=== PATIENT | female | born 1990 | race Caucasian/White ===

== ENCOUNTER 2019-12-31 08:36 | Outpatient (CLI) | payer OTHER, SELFPAY ==
--- NOTE | ~2019-12-31 | US_ITS ---
EXAMINATION: 1. US OB /maternal detail 2. US OB transvaginal DATE: 12/31/2019 10:29 INDICATION: Encounter for supervision of normal first , second trimester. TECHNIQUE: Real-time transabdominal and transvaginal ultrasound of the pelvis was performed. COMPARISON: None. FINDINGS: There is a single living fetus in variable presentation. The placenta is posterior, 1.2 cm from the cervix. heart rate is 155 beats per minute (bpm). The amniotic fluid index is 12.7 cm, which is normal. The following biometric data were obtained: Biparietal diameter (BPD): 5.2 cm; head circumference (HC): 18.3 cm; abdominal circumference (AC): 17 .0 cm; femur length (FL): 3.9 cm. These measurements are concordant. Estimated weight is 467 g +/- 70 g, which correlates with 18th percentile when 05/01/20 is used as estimated date of delivery. As single measurements, these parameters are each equal to the following estimated gestational ages: BPD: 21 weeks 6 days. HC: 20 weeks 5 days. AC: 22 weeks 0 days. FL: 22 weeks 3 days. estimated gestational age based solely on measurements from this exam is 21 weeks 5 days +/- 1 weeks 4 days. The cerebral ventricles, cerebellum, cisterna magna, nuchal fold, lip, and visualized portions of the spine are normal. The heart is normal. The diaphragm, stomach, kidneys, and bladder are normal. Ther e are two umbilical arteries to yield a 3-vessel cord. The cord insertion is normal. Transvaginal images demonstrate a cervical length of 3.4 cm, which is normal. IMPRESSION: 1. Single living fetus in variable presentation. 2. Estimated weight is 467 g +/- 70 g, which correlates with 18th percentile when 05/01/20 is u sed as estimated date of delivery. 3. Normal anatomic survey. 4. Low lying placenta. 5. Normal cervical length. Reviewed, dictated and finalized at location A. ITAL MONITOR IMPRESSION: 1. Single living fetus in variable presentation. 2. Estimated weight is 467 g +/- 70 g, which correlates with 18th percen tile when 05/01/20 is used as estimated date of delivery. 3. Normal anatomic survey. 4. Low lying placenta. 5. Normal cervical length.
[2020-01-04 08:30] LABS: CMV IgG Antibody <0.60 U/mL (<0.60)
== END 2019-12-31 08:37 | disposition home or self-care (01) ==
PROVIDERS: Visit Provider Obstetrics & Gynecology
DX: O44.42 Low lying placenta NOS or without hemorrhage, second trimester (principal); Z3A.21 21 weeks gestation of pregnancy
CPT/HCPCS: 36415; 76805; 76817; 86644; 86747; 86787

== ENCOUNTER 2020-02-07 10:15 | Outpatient (CLI) | payer OTHER, SELFPAY ==
[2020-02-07 11:50] LABS: Hematocrit 34.4 % (37.0-47.0); Hemoglobin 11.8 g/dL (12.0-15.0)
[2020-02-07 12:02] LABS: Glucose 1 Hour PP 50gm Dose 125 mg/dL
[2020-02-07 12:41] LABS: HIV 1/2 Ab P24 Ag Result Negative (Negative)
== END 2020-02-07 10:16 | disposition home or self-care (01) ==
PROVIDERS: Visit Provider Obstetrics & Gynecology
DX: Z34.02 Encounter for supervision of normal first pregnancy, second trimester (principal); Z3A.00 Weeks of gestation of pregnancy not specified
CPT/HCPCS: 36415; 82947; 85014; 85018; 86703; G0432

== ENCOUNTER 2020-04-16 15:54 | Outpatient (CLI) | payer OTHER, SELFPAY ==
[2020-04-16 16:32] LABS: Basophils Percent Auto 0.2 % (0.2-1.2); Eosinophils Absolute Auto 0.1 K/mm3 (0-0.3); Hematocrit 38.5 % (37.0-47.0); Hemoglobin 13.4 g/dL (12.0-15.0); Immature Granulocyte Absolute 0.08 K/mm3 (0.00-0.031); Immature Granulocyte Percent A 0.9 % (0-0.5); Lymphocytes Absolute Auto 1.53 K/mm3 (0.9-3.2); Lymphocytes Percent Auto 17.3 % (18.3-44.2); Mean Corpuscular HGB Conc 34.8 g/dl (32-36); Mean Corpuscular Hemoglobin 30.7 pg (26-34); Mean Corpuscular Volume 88.1 fl (80-100); Mean Platelet Volume 9.9 fl (7.4-10.4); Monocytes Absolute Auto 0.4 K/mm3 (0.1-0.6); Monocytes Percent Auto 4.5 % (2.6-8.5); Neutrophils Absolute Auto 6.7 K/mm3 (1.3-6.7); Neutrophils Percent Auto 76.1 % (45.5-73.1); Platelet Count Result 228 k/mm3 (150-375); Red Blood Count 4.37 M/mm3 (4.2-5.4); Red Cell Distribution Width 12.8 % (11.5-14.5); White Blood Count 8.8 K/mm3 (4.5-10.0)
[2020-04-17 08:54] LABS: Rapid Plasma Reagin Non-Reactive (NonReactive)
== END 2020-04-16 15:55 | disposition home or self-care (01) ==
PROVIDERS: Visit Provider Obstetrics & Gynecology
DX: Z01.818 Encounter for other preprocedural examination (principal)
CPT/HCPCS: 36415; 85025; 86592; 86850; 86900; 86901

== ENCOUNTER 2020-04-17 09:44 | Inpatient (IN) | payer OTHER, SELFPAY ==
[2020-04-17] VITALS (50 sets, daily range): BP systolic 84–120; BP diastolic 53–88; PULSE 76–118; RESP 13–20; TEMP 36.2–36.7; O2SAT 96–100; BMI 33.8
[2020-04-17] MEDS: LACTATED RINGERS 1,000 ML 999 ML (10:50)
--- NOTE | 2020-04-17 11:13 | WPDANESEPPF ---
Anes - Initial Pre Proc Eval Date/Time: 04/17/20 11:13 Surgeon: Rashmi Hurtado MD Pre Op Diagnosis: Patient Data Age: 29 Gender: F Height: Weight: Last Vital Signs Pulse 105 H 04/17/20 10:11 BP 116/62 04/17/20 10:11 Allergies Allergy/AdvReac Type Severity Reaction Status Date / Time sulfamethoxazole Allergy Verified 01/31/20 14:46 trimethoprim Allergy Verified 01/31/20 14:46 Home Medications Medication Instructions Recorded Confirmed Type PNV cmb#95-ferrous fumarate-FA 1 tablet PO DAILY 03/31/20 03/31/20 History [] docusate sodium [Colace] 100 mg PO BID 03/31/20 03/31/20 History ferrous sulfate [Iron (ferrous 325 mg PO DAILY 03/31/20 03/31/20 History sulfate)] Patient hx anesthesia problems: none Family hx anesthesia problems: none PMFSH Family History Family History Father High cholesterol Hypertension Sibling Asthma Mother Hypothyroidism Social History Social History Substance use: never Gender identity (if verbalized by the patient): Female Spiritual care concerns: No Anes - Eval Final PreProcedure Day of Procedure 04/17/20 11:13 Patient weight: overweight Heart: regular rate and rhythm Lungs: clear to auscultation Airway: Mallampati scale class II Neurological: alert and oriented Last oral intake: >/= 8 hours ASA classification: II Emergent: no Anesthetic plan: proceed Anesthesia type and monitoring: regional spinal and standard monitoring Informed Consent: The patient's anesthetic plan and its attendant risks and benefits were discussed with the patient/family/POA. Questions were solicited and answers provided to the satisfaction of the patient/family/POA.
--- NOTE | 2020-04-17 11:23 | LDADM ---
This patient, Jessica Knight, was admitted to Labor/Delivery/Recovery 120 on 04/17/20 at 09:44. Plans for labor, pain management and were discussed with patient. Patient/ oriented to hospital policies and general routines including ID bracelet, bed and alarms, visiting hours, pain management, procedures, bathroom and other care routines, personal items, smoking policy, room service/diet and guest tray routines, infant security routines, call light, and visiting hours. Patient/ are encouraged to report perceived risks to care and to ask questions if they do not understand what they are told or what they should do. See OBIX for further documentation.
--- NOTE | 2020-04-17 12:06 | P.HP_ITS ---
H&P: HPI History of Present Illness Chief complaint: Narrative: Jessica Knight is a 29 yo @ 38.0 who presents for scheduled primary c/s due to low lying placenta. She denies any issues. Good movement. No vaginal bleeding, contractions, or leakage of fluid. Her has been complicated by: 1. Persistent low lying placenta; without bleeding 2. H/o LEEP w/ normal cervical lengths 3. H/o depression, not on medications Review of Systems Constitutional: Constitutional: Denies body ache(s) and Denies chills Eyes: Eyes: Denies blurry vision Cardiovascular: Cardiovascular: Denies chest pain and Denies palpitations Respiratory: Respiratory: Denies cough and Denies dyspnea Gastrointestinal: Gastrointestinal: Denies nausea and Denies vomiting Genitourinary: Genitourinary: Denies vaginal discharge Neurologic: Denies vertigo and Denies headache(s) Psychiatric: Psychiatric: Denies anxiety [facility] Family History Family History Father High cholesterol Hypertension Sibling Asthma Mother Hypothyroidism Social History Social History Smoking status: Never smoker Substance use: never Gender identity (if verbalized by the patient): Female Spiritual care concerns: No Meds Home Medications and Allergies Home Medications Medication Instructions Recorded Confirmed Type PNV cmb#95-ferrous fumarate-FA 1 tablet PO DAILY 03/31/20 03/31/20 History [] docusate sodium [Colace] 100 mg PO BID 03/31/20 03/31/20 History ferrous sulfate [Iron (ferrous 325 mg PO DAILY 03/31/20 03/31/20 History sulfate)] Allergies Allergy/AdvReac Type Severity Reaction Status Date / Time sulfamethoxazole Allergy Verified 01/31/20 14:46 trimethoprim Allergy Verified 01/31/20 14:46 Exam Const: General: comfortable and no acute distress Resp: Effort & Inspection: normal respiratory effort Cardio: Rate: regular rate GI: GI Palp: Yes Soft to palpation and No Tenderness to palpation present (GI) : Other: FHT: 150's/ mod kori/ + accels/ no decels - cat 1 TOCO: irritability no vaginal bleeding Skin: General skin exam: no rashes or lesions noted Neuro: Speech: normal speech Extrem: General: normal to inspection Psych: Mental Status: mental status grossly normal Affect: normal affect Assessment and Plan Assessment and plan (1) Low lying placenta nos or without hemorrhage, third trimester: Code(s): O44.43 - Low lying placenta NOS or without hemorrhage, third trimester Status: Acute Additional Plan - Persistent low lying placenta confirmed on US @ 35.6wks (1.9cm from os) - Discussed risks and benefits of attempting vaginal delivery vs primary low transverse c/s in detail with patient, and timing of between 37-39wks due to no h/o bleeding. - Pt desires to proceed with scheduled pLTCS @ 38.0wks to decrease the risk of contractions/risk of vaginal bleeding and emergency c/s
[2020-04-17] MEDS: ceFAZolin 2 GM/D5W 50 ML 2 GM/50 ML BAG IVPB (12:07)
[2020-04-17] MEDS: LORATADINE 10 MG TABLET PO (15:01)
[2020-04-17] MEDS: OXYTOCIN 30 UNITS/NS 500 ML 30 UNITS/500 ML BAG 125 UNITS IV CONT (15:01)
--- NOTE | 2020-04-17 16:04 | OBPPTRN ---
Patient transferred to post room # 284 via stretcher. Support person present. Oriented to unit, room, information board, rooming in, admission packet and security measures. Patient verbalizes understanding.
--- NOTE | 2020-04-17 17:13 | PM.OBPRVD ---
OB - Delivery Note Procedure Delivery date: 04/17/20 Procedure: Procedures Operation Date: 04/17/20 12:00 Actual Procedures Side Surgeon p Section Rashmi Hurtado MD Description of the Procedure: Jessica is a 29yo @ 38.0wks who presented for scheduled primary section due to low lying placenta, 1.9cm from os. She was counseled on all risks and benefits in detail. She was taken to the operating room where spinal epidural was placed. She was then prepped and draped in the normal sterile fashion. She received 2g Ancef and a time out was performed. A Pfannenstiel incision was made in the skin and carried down to the underlying fascia. The fascia was nicked on either side of the midline and the fascial incision was extended laterally and superiorly. The fascia was then elevated and the underlying rectus muscles were dissected off the fascia, superiorly and inferiorly. The rectus muscles were then in the midline and the peritoneum was entered bluntly. Once adequate exposure was obtained, an Norma self retractor was placed within the abdomen. A bladder flap was created. A low transverse incision was made on the lower uterine segment and clear fluid was noted. The occicuput was brought to the hysterotomy and the head was easily delivered. The shoulder and body then followed without complications. The fetus had spontaneous cry and the mouth and nose were bulb suctioned. The cord was clamped and cut and the fetus was handed off to the awaiting pediatric nurse. A segment of the cord was collected for cord gases. The remaining cord blood was collected for typing. With pitocin infusing, the placenta delivered with gentle traction on the cord without complications. The uterus was then cleared out of all clots and debris using a clean, moist lap. The hysterotomy was then repaired in a running, interlocking fashion using 0 Vicryl. A second layer imbricating suture was then made using 0 Vicryl. The hysterotomy was found to be hemostatic and good uterine tone was noted. The bilateral adnexa were examined and found to be normal. The pelvis was cleared of all clots and fluid. The norma retractor was removed from the abdomen. The peritoneum, muscle, and fascia were examined and made hemostatic with bovie cautery. The fascia was then repaired using two separate 0 Vicryl sutures in a running fashion. The subcutaneous tissue was then irrigated and made hemostatic with bovie cautery. The subcutaneous tissue was then reapproximated using 0 Vicryl. The skin was then closed using 3-0 Monocryl in a running subcuticular fashion. Sponge, lap, needle and instrument counts were correct at the end of the procedure x2. The patient tolerated the procedure well and was taken to recovery in a stable condition. Route of delivery: (scheduled due to low lying placenta) Estimated blood loss (mL): 465 Anesthesia type: Spinal Disposition: PACU Baby Date of : 04/17/20 Time of : 12:50 Weeks of gestation at delivery: 38 gender: Female Weight (pounds): 8 Weight (ounces): 2 presentation: vertex Placenta delivery description: Manual Removal cord vessel description: 3 Vessels score one minute: 9 score five minutes: 9
[2020-04-17] MEDS: KETOROLAC 30 MG/ML VIAL (*BKC) IV PUSH (18:41)
[2020-04-18] MEDS: KETOROLAC 30 MG/ML VIAL (*BKC) IV PUSH ×2 (00:58→07:26)
[2020-04-18 01:10] VITALS: BP 101/56; PULSE 83; RESP 12; TEMP 36.2; O2SAT 99
[2020-04-18 04:30] VITALS: BP 100/57; PULSE 91; RESP 14; TEMP 36.6; O2SAT 99
[2020-04-18 05:33] LABS: Basophils Percent Auto 0.2 % (0.2-1.2); Eosinophils Absolute Auto 0.1 K/mm3 (0-0.3); Eosinophils Percent Auto 0.9 % (0-4.4); Hematocrit 31.8 % (37.0-47.0); Hemoglobin 10.9 g/dL (12.0-15.0); Immature Granulocyte Absolute 0.07 K/mm3 (0.00-0.031); Immature Granulocyte Percent A 0.7 % (0-0.5); Lymphocytes Absolute Auto 1.33 K/mm3 (0.9-3.2); Lymphocytes Percent Auto 12.6 % (18.3-44.2); Mean Corpuscular HGB Conc 34.3 g/dl (32-36); Mean Corpuscular Hemoglobin 30.5 pg (26-34); Mean Corpuscular Volume 89.1 fl (80-100); Mean Platelet Volume 10.1 fl (7.4-10.4); Monocytes Absolute Auto 0.5 K/mm3 (0.1-0.6); Neutrophils Absolute Auto 8.5 K/mm3 (1.3-6.7); Neutrophils Percent Auto 80.6 % (45.5-73.1); Platelet Count Result 167 k/mm3 (150-375); Red Blood Count 3.57 M/mm3 (4.2-5.4); Red Cell Distribution Width 12.9 % (11.5-14.5); White Blood Count 10.6 K/mm3 (4.5-10.0)
[2020-04-18] MEDS: DOCUSATE SODIUM 100 MG CAPSULE PO ×2 (07:24→17:00)
[2020-04-18] MEDS: MULTIVIT/MIN/PREN/FOL AC/IRON TABLET 1 TAB PO (07:24)
[2020-04-18 08:05] VITALS: BP 98/56; PULSE 89; RESP 16; TEMP 36.8; O2SAT 97
--- NOTE | 2020-04-18 08:24 | PC.NURSE ---
On 04/18/20, all charting on this pt. from 619 to 1829 under the name Yadi Richter RN was actually performed and completed by Bubba Shah RN
--- NOTE | 2020-04-18 09:10 | WPDANLDPN2 ---
Anes-Prog Note L&D Date/Time: 04/18/20 09:10 Comfortable throughout: section Neuraxial method: spinal Epidural/Spinal procedure site: clean & non-tender Neuro status: Neuro function grossly intact. Cardiovascular status: normal Respiratory status: normal Airway patency: baseline Mental status: baseline Post-Op hydration status: normal Vital Signs: Last Vital Signs Temp 36.6 C 04/18/20 04:30 Pulse 91 04/18/20 04:30 Resp 14 04/18/20 04:30 BP 100/57 L 04/18/20 04:30 Pulse Ox 99 04/18/20 04:30 I/O: Intake & Output 04/17/20 04/18/20 04/18/20 23:59 07:59 15:59 Intake Total 400 1800 Output Total 443 8351 Balance -43 -275 Post-procedural complaints: none Patient feedback: Patient satisfied with anesthetic care.
--- NOTE | 2020-04-18 11:25 | PC.NURSE ---
Mother called out for assist with feeding. Consulted with patient, reviewed feeding cues, frequencies, duration of feedings, feeding elimination flow sheet, and signs of adequate intake. Demonstrated stimulation techniques to wake for feeding. Noted mother has a slight bruising to center of left nipple, from possible shallow latch. Assisted with to breast. Reviewed positioning/alignment in cross cradle, holding breast in U hold and guided asymmetrical latch on. Discussed rational for each. Infant was able to latch correctly within a few attempts. Infant nursed eagerly, with steady draws and frequent swallowing noted. Reviewed signs of a correct latch, effective nursing and suck swallow ratio. was able to maintain latch without discomfort to mother. Nipple care reviewed. Demonstrated how to adjust latch more deeply while feeding. Discussing left nipple bruising, infant may have slipped down to shallow latch. Advised to stimulate to keep infant awake and nursing effectively and to assist with maintaining deep latch. Instructed mother to call out for RN assistance if she is unable to latch infant for feeding or she has discomfort with nursing. Instructed feeding should be initiated three hours from start of last feeding or if feeding cues are noted before. Mother voiced understanding of information shared.
[2020-04-18 13:00] VITALS: BP 126/85; PULSE 102; RESP 18; TEMP 37; O2SAT 100
[2020-04-18] MEDS: IBUPROFEN 600 MG TABLET PO ×2 (13:07→19:52)
--- NOTE | 2020-04-18 14:03 | P.PNOB_ITS ---
OB - PN: Subj Subjective Date/time seen: 04/18/20 14:03 Jessica is a 29yo P1001 s/p pLTCS 2/2 low lying placenta @38.0wks, POD #1 Today, Jessica reports doing well. Her pain is more than expected but controlled with the pain medications. She is tolerating regular diet w/o N/V. She is spontaneously voiding and has already had a BM. She reports her bleeding is normal. She has ambulated w/o s/sx of anemia. She is breast feeding. OB - PN: Obj Data Labs CBC & Chem 7: 04/18/20 05:03 Labs: Laboratory Results - last 24 hr 04/18/20 05:03 WBC 10.6 H RBC 3.57 L Hgb 10.9 L Hct 31.8 L MCV 89.1 MCH 30.5 MCHC 34.3 RDW 12.9 Plt Count 167 MPV 10.1 Immature Gran % (Auto) 0.7 H Neut % (Auto) 80.6 H Lymph % (Auto) 12.6 L [place] % (Auto) 5.0 Eos % (Auto) 0.9 Baso % (Auto) 0.2 Lymph # (Auto) 1.33 [place] # (Auto) 0.5 Eos # (Auto) 0.1 Baso # (Auto) 0.0 Abs Immat Gran (auto) 0.07 H Absolute Neuts (auto) 8.5 H Absolute Nucleated RBC 0.0 Nucleated RBC % 0.0 OB - PN A/P Assessment and Plan (1) S/P section: Code(s): Z98.891 - History of uterine scar from previous surgery Status: Acute Plan day: 1 Comments: - Meeting all post-op milestones - Pain meds PRN - Regular diet, normal bowel function - Continue breast feeding - Labs/vitals stable - Anticipate D/C home on POD# 2 or 3 Time Spent With Patient Time: Total time spent is greater than 50% in coordination of care (as documented) at patient's floor/unit and/or counseling patient: Review of Systems Constitutional: Constitutional: Denies chills Cardiovascular: Cardiovascular: Denies rapid heart rate Respiratory: Respiratory: Denies cough and Denies dyspnea Gastrointestinal: Gastrointestinal: Reports abdominal pain, Denies nausea and Denies vomiting Genitourinary: Comments: normal bleeding Neurologic: Denies headache(s) Exam Const: General: comfortable, no acute distress, alert and awake Orientation/consciousness: patient oriented x3 Resp: Effort & Inspection: normal respiratory effort Auscultation: clear to auscultation bilaterally Cardio: Rate: regular rate GI: Auscultation: normal bowel sounds Other: non-distended, pfannenstiel incision covered w/ dressing w/ small area of bleeding, appropriately tender, soft. : Other: fundus firm below umbilicus Psych: Appearance: grossly normal Affect: normal affect Attitude: cooperative Judgement: Good judgement present (Psych)
[2020-04-18 22:45] VITALS: BP 134/79; PULSE 106; RESP 16; TEMP 36.8; O2SAT 99
[2020-04-19] MEDS: IBUPROFEN 600 MG TABLET PO ×4 (02:27→23:51)
[2020-04-19 08:05] VITALS: BP 112/66; PULSE 88; RESP 18; TEMP 37.1; O2SAT 97
[2020-04-19] MEDS: DOCUSATE SODIUM 100 MG CAPSULE PO ×2 (09:27→15:55)
[2020-04-19] MEDS: MULTIVIT/MIN/PREN/FOL AC/IRON TABLET 1 TAB PO (09:27)
--- NOTE | 2020-04-19 09:59 | PM.OBPNVD ---
OB - PN: Subj Subjective Date/time seen: 04/19/20 09:59 POD#2 Jessica reports the pain is not well controlled; it's decreasing some by the narcotics, but not to a tolerable level for her. She is still able to ambulate to the restroom. She is otherwise tolerating regular diet w/o N/v. Voiding, passing gas. She is breast feeding. Her bleeding is decreasing. No s/sx of anemia. She would like to stay another night. OB - PN: Obj Data Labs CBC & Chem 7: 04/18/20 05:03 OB - PN A/P Assessment and Plan (1) S/P section: Code(s): Z98.891 - History of uterine scar from previous surgery Status: Acute Plan day: 2 Plan: routine care Comments: - meeting all postop milestones - Will switch pain meds from norco to percocet; continue ibuprofen scheduled. encouraged ambulation - will discharge home tomorrow. Discharge insturctions discussed: HTN, anemia sx/bleeding, N/V/abd pain, pelvic rest, no heavy bleeding, fever. - Discussed h/o depression and starting zoloft; declines at this time, Jessica and her will keep an eye and look out for s/sx of depression. F/u in 2 weeks for first PP check. Time Spent With Patient Time: Total time spent is greater than 50% in coordination of care (as documented) at patient's floor/unit and/or counseling patient: Review of Systems Constitutional: Constitutional: Denies body ache(s), Denies chills and Denies fatigue Cardiovascular: Cardiovascular: Denies rapid heart rate Respiratory: Respiratory: Denies cough and Denies dyspnea Gastrointestinal: Gastrointestinal: Reports abdominal pain, Denies constipation, Denies nausea and Denies vomiting Neurologic: Denies headache(s) Exam Const: General: comfortable (sitting up in bed), no acute distress, alert and awake Orientation/consciousness: patient oriented x3 Chest: Breast/axilla inspection: normal inspection of the breasts Resp: Effort & Inspection: normal respiratory effort Auscultation: clear to auscultation bilaterally Cardio: Rate: regular rate GI: Auscultation: normal bowel sounds Other: non-distended, soft, appropriately tender, incision covered w/ dressing (small area of bleeding has not expanded) : Other: fundus firm below umbilicus Psych: Appearance: grossly normal Affect: normal affect Attitude: cooperative Judgement: Good judgement present (Psych)
--- NOTE | 2020-04-19 15:00 | PC.NURSE ---
Mother called out for assist with feeding. Mother reports she was given a nipple shield within the first few feedings. Infant was latching without shield and she is now using shield on right due to tenderness. Discussed nipple shield precautions and possible complications. Instructions given on application and cleaning of shield. Patient able to return demonstration on proper application of shield. Discussed the need to initiate pumping if continues to nurse with the shield. Patient verbalizes understanding. Both nipples are tender with a small blister to right. Mother reports infant can latch easily to left with no discomfort. Assisted with infant to breast. Reviewed positioning/alignment in cross cradle, holding breast in U hold and guided asymmetrical latch on. Discussed rational for each. Infant was able to latch correctly with the shield to right breast. nursed eagerly, with short chewy sucks. does not thrust tongue forward for rhythmical draws. Reviewed signs of a correct latch, effective nursing and suck swallow ratio. Infant removed from breast and allowed to suck on gloved finger with tongue training. returned to breast with a intermittent rhythmical drawing noted, more chewy than drawing. Parents feel infant is fussy with feedings and does not act satisfied after feedings. Parents would like to initiate supplementation. Assisted FOB with bottle feeding, suggested to limit to 15mls after each . Breast pump provided due to ineffective feeding/shield use. Instructions given on breast pump care and usage, pumping schedule, nipple care, and collection and storage of breast milk. Encouraged [id number], breast massage and manual expression to stimulate supply. Assessed patient for correct flange size, placement and draw. Patient verbalizes and demonstrates understanding of instructions.
[2020-04-19 19:25] VITALS: BP 125/79; PULSE 93; RESP 16; TEMP 36.6
[2020-04-20] MEDS: IBUPROFEN 600 MG TABLET PO (05:35)
[2020-04-20] MEDS: MULTIVIT/MIN/PREN/FOL AC/IRON TABLET 1 TAB PO (07:52)
[2020-04-20] MEDS: DOCUSATE SODIUM 100 MG CAPSULE PO (07:52)
[2020-04-20 08:05] VITALS: BP 123/64; PULSE 92; RESP 18; TEMP 36.5; O2SAT 100
--- NOTE | 2020-04-20 08:50 | PC.NURSE ---
Mother is able to independently latch with appropriate positioning/alignment. She denies any nipple discomfort, is feeding as required and waking infant to feed if needed. Infant has had several feedings in the past 24 hours, followed with supplementation. Infant is currently meeting outcomes for weight, output, jaundice and feeding frequencies. Mother feels is more awake and nursing with longer bursts of rhythmical draws and increased swallowing noted. Mother feels her milk is coming in and feels confident to continue current feeding plan at home. Reviewed transition to breast milk, signs of adequate intake, and engorgement/relief. Discussed signs of when is needing to increase supplementation and when is ready to discontinue supplementation. Advised not to discontinue supplement until is eagerly latching and maintaining a consistent suck swallow for 10-15 minutes and satisfied after feedings. Instructed to call ICP if intake/output less than required. Reviewed regular medications mother is taking. Information provided per [facility]. Reviewed community resources on the [facility] website and in the Mom/Baby guide. Information on outpatient services provided. Mother has no further questions at this time.
[2020-04-21 09:01] VITALS: BP 121/74; PULSE 89; RESP 20; TEMP 37.7; O2SAT 98
--- NOTE | 2020-04-23 10:29 | PM.OBDSVD ---
DS: Admitting Diagnosis Admitting Diagnosis Admitting Diagnosis: Low lying placenta NOS or without hemorrhage, third trimester DS: Discharge Diagnosis Discharge Diagnosis (1) Low lying placenta nos or without hemorrhage, third trimester: Code(s): O44.43 - Low lying placenta NOS or without hemorrhage, third trimester Status: Acute (2) S/P section: Code(s): Z98.891 - History of uterine scar from previous surgery Status: Acute OB - DS: Summary OB Procedures : Ultrasound OB Procedures Intrapartum: OB Procedures: : None Peripartum Data Infant Delivery Method: Section Procedures: Procedures Operation Date: 04/17/20 12:00 Actual Procedures Side Surgeon p Section Rashmi Hurtado MD complications: none [place] 1: Gender: Female Disposition of : home Status at Discharge Functional status at discharge: independent ambulation Overall status at discharge: patient is back to baseline Time Spent with Patient Time attestation: Total time spent providing and/or coordinating discharge services: Exam Const: General: comfortable, no acute distress, alert and awake Orientation/consciousness: patient oriented x3 Resp: Effort & Inspection: normal respiratory effort Auscultation: clear to auscultation bilaterally Cardio: Rate: regular rate GI: Inspection: non-distended GI Palp: Yes Soft to palpation, Yes Tenderness to palpation present (GI) and No Guarding due to palpation present (GI) Auscultation: normal bowel sounds Psych: Appearance: grossly normal Affect: normal affect Attitude: cooperative Judgement: Good judgement present (Psych) Discharge Plan Discharge Attending physician on discharge: Rashmi Hurtado Consulting providers: Bryant Goodrich Discharging Clinician: Rashmi Hurtado Anticipated Discharge Date/Time: 04/19/20 18:00 Patient Disposition: Home, Self-Care Activity: no straining and pelvic rest Diet: regular Wound Care Instructions: incision open to air Discharge Instructions: Education: Mom and Baby Guide Given to: Mother Follow-Up: Call your delivering provider's office for an appointment to be seen in: 2 Weeks Mom and baby should come to the [facility] for the follow-up appointment. Appointment Date/Time: April 21, 2020 at 9:00 am What to expect at your follow-up visit: Physical Assessment Call [phone] if you are unable to keep your appointment time. BREAST CARE: 1. Wear a snug supportive bra. 2. For engorgement discomfort: Breast Feeding: A. Apply warm moist washcloths B. Express milk as needed to relieve engorgement C. Wear loose clothing 3. For sore nipples: A. Identify correct latch-on B. Apply warm moist washcloths before and after nursing C. Air dry nipples after nursing D. May apply Lansinoh cream to nipples ABDOMINAL INCISION: (if applicable) 1. Allow incision to air dry 2. Do NOT use lotions for powders on your incision 3. When showering, allow soap and water to run over the incision, but do not wash incision EPISIOTOMY/PERINEAL CARE: 1. Until bleeding stops, use your luther bottle after urinating 2. Change your pad frequently throughout the day 3. No tub baths until seen by your physician - You may shower ACTIVITY: 1. Rest as much as possible. 2. Do not exercise or lift anything heavier than your baby (such as laundry or other children.) 3. Avoid stairs or driving as much as possible. 4. Do not put anything into the vagina. No douching, tampons, or sexual activity until seen by physician. NOTIFY PHYSICIAN IF YOU HAVE ANY QUESTIONS OR IF ANY OF THE FOLLOWING SYMPTOMS OCCUR: 1. If your incision becomes red, swollen, or more painful than what you have experienced in the hospital. 2. If your vaginal bleeding becomes foul smelling. 3
== END 2020-04-20 12:23 | disposition home or self-care (01) | DRG 788 ==
LOC: ANHLDR 09:47 → ANHOB2 16:07
PROVIDERS: Admitting Provider Obstetrics & Gynecology; Visit Provider Obstetrics & Gynecology
PROC: 10D00Z1 Extraction of Products of Conception, Low, Open Approach (ICD-10-PCS; CPT 59514; principal; 2020-04-17 12:00)
DX: O44.43 Low lying placenta NOS or without hemorrhage, third trimester (principal); Z37.0 Single live birth; Z3A.38 38 weeks gestation of pregnancy
CPT/HCPCS: 36415; 85025; A9270; J0131; J0690; J1885; J2274; J2370; J2590; J7120

== ENCOUNTER 2021-05-29 09:39 | Emergency (ER) | payer BC, SELFPAY ==
--- NOTE | ~2021-05-29 | US_ITS ---
EXAMINATION: US venous doppler LE RT EXAM DATE: 05/29/2021 10:52 INDICATION: Right leg pain and swelling. Right leg bruising. TECHNIQUE: Multiple grayscale, color flow and Doppler images of the right lower extremity deep venous system were obtained and reviewed. There is no prior study for comparison. FINDINGS: The right common femoral, femoral and profunda veins demonstrate normal color flow, respira tory variation, augmentation and compressibility. Compressibility, color flow confirmed within the r ight popliteal, posterior tibial, peroneal, and greater saphenous veins. Scanning at area of patient 's right leg bruise demonstrates no underlying hematoma. IMPRESSION: 1. No right lower extremity deep venous thrombosis. Reviewed, dictated and finalized at location B.
[2021-05-29 10:12] VITALS: BP 104/78; PULSE 89; RESP 20; TEMP 37.6; O2SAT 98
--- NOTE | 2021-05-29 10:28 | ED.EXTPRO ---
HPI - Extremity Problem General Chief complaint: Extremity Problem,Nontraumatic <Stephania Sullivan PA-C - Last Filed: 05/29/21 10:58> Stated complaint: sketchy varicose vein <Stephania Sullivan PA-C - Last Filed: 05/29/21 10:58> Time Seen by Provider: 05/29/21 10:20 <JULITO Gleason Last Filed: 05/29/21 10:58> Source: patient <JULITO Gleason Last Filed: 05/29/21 10:58> Mode of arrival: ambulatory <JULITO Gleason Last Filed: 05/29/21 10:58> Limitations: no limitations <Stephania Sullivan PA-C - Last Filed: 05/29/21 10:58> History of Present Illness HPI Narrative: This is a 30-year-old female that presents to the emergency department for right calf pain present since last night. Reports history of varicose veins. She noted some bruising and pain to the right calf last night. She was seen at urgent care and sent here for further evaluation of a possible DVT. Denies fever, erythema, or numbness. <JULITO Gleason Last Filed: 05/29/21 10:58> Related Data Home medications: Home Medications Medication Instructions Recorded Confirmed No Home Medications 05/29/21 05/29/21 <Stephania Sullivan PA-C - Last Filed: 05/29/21 10:58> Allergies/Adverse reactions: Allergies Allergy/AdvReac Type Severity Reaction Status Date / Time ciprofloxacin Allergy Dizziness Verified 05/29/21 10:26 sulfamethoxazole Allergy Hives Verified 05/29/21 10:26 <JULITO Gleason Last Filed: 05/29/21 10:58> Review of Systems Review of Systems: Narrative: CONSTITUTIONAL: Denies fever CARDIOVASCULAR: Denies chest pain RESPIRATORY: Denies dyspnea. MUSCULOSKELETAL: Reports myalgia. <JULITO Gleason Last Filed: 05/29/21 10:58> All systems reviewed & are unremarkable except as noted in HPI and below <JULITO Gleason Last Filed: 05/29/21 10:58> PMFSH Family History Family History: Family History Father High cholesterol Hypertension Sibling Asthma Mother Hypothyroidism <Stephania Sullivan PA-C - Last Filed: 05/29/21 10:58> Social History Social History: Social History Smoking status: Never smoker Substance use: never Gender identity (if verbalized by the patient): Female Spiritual care concerns: No <JULITO Gleason Last Filed: 05/29/21 10:58> Exam Narrative: Exam Narrative: GENERAL: Well-appearing, well-nourished, and in no acute distress. HEAD: Normocephalic, atraumatic. EYES: EOMI. EXTREMITIES: Normal range of motion. No edema, erythema or warmth. Small bruise to the right calf. Tender to palpation of the right calf. Normal DP pulses SKIN: Warm, dry, no rash. NEURO: No focal deficits. Alert and oriented x3. PSYCH: Normal mood and affect <Stephania Sullivan PA-C - Last Filed: 05/29/21 10:58> Course Vital Signs Vital signs: Vital Signs Temperature 99.6 F 05/29/21 10:12 Pulse Rate 89 05/29/21 10:12 Respiratory Rate 20 05/29/21 10:12 Blood Pressure 104/78 05/29/21 10:12 Pulse Oximetry 98 05/29/21 10:12 Temperature 99.6 F 05/29/21 10:12 Pulse Rate 82 05/29/21 11:37 Respiratory Rate 16 05/29/21 11:37 Blood Pressure 114/73 05/29/21 11:37 Pulse Oximetry 98 05/29/21 11:37 <JULITO Gleason Last Filed: 05/29/21 10:58> Vital Signs Temperature 99.6 F 05/29/21 10:12 Pulse Rate 89 05/29/21 10:12 Respiratory Rate 20 05/29/21 10:12 Blood Pressure 104/78 05/29/21 10:12 Pulse Oximetry 98 05/29/21 10:12 Temperature 99.6 F 05/29/21 10:12 Pulse Rate 82 05/29/21 11:37 Respiratory Rate 16 05/29/21 11:37 Blood Pressure 114/73 05/29/21 11:37 Pulse Oximetry 98 05/29/21 11:37 <Josette Villa MD - Last Filed: 05/29/21 18:50> MDM - Extremity (Nontraumatic) MDM Narrative Medical decision making narrative:
[2021-05-29 11:37] VITALS: BP 114/73; PULSE 82; RESP 16; O2SAT 98
== END 2021-05-29 11:38 | disposition home or self-care (01) ==
PROVIDERS: Emergency Provider General Practice
DX: M79.661 Pain in right lower leg (principal); I10 Essential (primary) hypertension; E78.5 Hyperlipidemia, unspecified
CPT/HCPCS: 93971; 99284